=== PATIENT | male | born 1985 | race Two or more races ===

== ENCOUNTER 2017-07-25 18:08 | Emergency (ER) | payer OTHER ==
[~2017-07-25] VITALS: Ht 170.2 cm; Wt 69.0 kg
[2017-07-25] MEDS ORDERED: MECLIZINE CHEWABLE 25 MG TAB ONE ×2 (18:21→22:25)
[2017-07-25] MEDS ORDERED: ONDANSETRON 2MG/ML, 2ML ONE (18:21)
[2017-07-25] MEDS ORDERED: ONDANSETRON 2MG/ML, 2ML IVPush ONE (18:30)
[2017-07-25] MEDS ORDERED: PLEASE ENTER HEIGHT AND WEIGHT MC SCH (18:30)
[2017-07-25] MEDS ORDERED: MECLIZINE CHEWABLE 25 MG TAB PO ONE ×2 (18:30→22:30)
[2017-07-25] MEDS ORDERED: SODIUM CHLORIDE 0.9% 1,000ML IVBOLUS ONE (18:30)
[2017-07-25] MEDS ORDERED: SODIUM CHLORIDE FLUSH 10ML SYR IVF ONE (18:30)
[2017-07-25 19:55] LABS: HEMATOCRIT 47.8 % (39.2-51.8); HEMOGLOBIN 16.1 g/dL (13.7-18.0); WHITE BLOOD COUNT 13.9 x10^3/uL (3.4-10)
[2017-07-25 20:01] LABS: BLOOD UREA NITROGEN 14 mg/dL (7-18)
[2017-07-25 22:09] VITALS: BP 119/54
== END 2017-07-25 23:34 | disposition home or self-care (01) ==
LOC: ED 21:25
DX: H81.313 Aural vertigo, bilateral (principal)
CPT/HCPCS: 36415; 70450; 70551; 80048; 82040; 85025; 85610; 85730; 93005; 96361; 96374; 99285; J2405; J7030